=== PATIENT | female | born 1975 | race Caucasian/White ===

== ENCOUNTER 2017-09-21 04:48 | Emergency (ER) | payer SELFPAY ==
[~2017-09-21] VITALS: Ht 162.6 cm; Wt 84.5 kg
[2017-09-21 05:23] LABS: HEMATOCRIT 37.8 % (36.0-46.0); HEMOGLOBIN 12.8 G/DL (11.9-15.5); MCHC 33.9 G/DL (30.0-36.0); MCV 94.5 FL (83-99); PLATELET COUNT 190 K/uL (156-360); RBC DIS.WIDTH-SD 42.2 % (39-53); WHITE BLOOD COUNT 4.5 K/uL (4.1-10.2)
[2017-09-21 05:36] LABS: APPEARANCE SL.HAZY ((CLEAR)); BILIRUBIN NEGATIVE; BLOOD LARGE; COLOR YELLOW ((YELLOW)); GLUCOSE (STRIP) NEGATIVE; KETONES NEGATIVE; LEUKOCYTES NEGATIVE; NITRITE NEGATIVE; PROTEIN (STRIP) 30; SPECIFIC GRAVITY 1.017 (1.000-1.030); UROBILINOGEN 0.2 MG/DL (0.2-1.0)
[2017-09-21 06:17] LABS: RED BLOOD CELLS TNTC /HPF (0-5); WHITE BLOOD CELLS 0-5 /HPF (0-5)
[2017-09-21 06:18] LABS: BACTERIA 1+ /HPF; EPITHELIAL CELLS 1+ /HPF; MUCUS 3+ /LPF; UCUL ADDED? YES
[2017-09-21 08:18] VITALS: BP 121/71
[2017-09-22] MEDS ORDERED: PERCOCET 5/31 TABLET PO (15:52)
[2017-09-22] MEDS ORDERED: ZOFRAN4 MG PO (15:52)
[2017-09-22] MEDS ORDERED: IMODIUM A-D2 M2 PO (15:52)
== END 2017-09-21 08:18 | disposition home or self-care (01) ==
LOC: EME 04:48
DX: O20.0 Threatened abortion (principal); O09.521 Supervision of elderly multigravida, first trimester; Z3A.01 Less than 8 weeks gestation of pregnancy
CPT/HCPCS: 76801; 81003; 84702; 85027; 86900; 86901; 87086; 99281; 99284

== ENCOUNTER 2017-09-22 12:46 | Emergency (ER) | payer SELFPAY ==
[~2017-09-22] VITALS: Ht 162.6 cm; Wt 83.0 kg
[2017-09-22 13:56] LABS: BASOPHIL (%) 0.2 % (0-1); EOSINOPHIL (%) 0.2 % (0-5); HEMATOCRIT 35.3 % (36.0-46.0); IMMATURE GRANULOCYTE (%) 0.2 % (0.0-0.7); LYMPHOCYTE (%) 12.2 % (15-42); LYMPHOCYTE COUNT 0.7 K/uL (1.0-2.8); MCH 32.2 PG (29.0-34.0); MCV 94.6 FL (83-99); MONOCYTE (%) 5.2 % (3-12); MONOCYTE COUNT 0.3 K/uL (0-0.8); NEUTROPHIL COUNT 4.4 K/uL (1.8-6.4); PLATELET COUNT 186 K/uL (156-360); RBC DIS.WIDTH-CV 12.1 % (11.8-14.6); RBC DIS.WIDTH-SD 42.1 % (39-53); RED BLOOD COUNT 3.73 M/uL (3.80-5.20); WHITE BLOOD COUNT 5.4 K/uL (4.1-10.2)
[2017-09-22 14:03] LABS: CHLORIDE 105 mEq/L (99-109); POTASSIUM 3.8 mEq/L (3.7-5.4); SODIUM 138 mEq/L (136-147)
[2017-09-22 14:05] LABS: GLUCOSE 109 mg/dL (70-99)
[2017-09-22 14:09] LABS: CREATININE 0.9 mg/dL (0.6-1.3); GFR ESTIMATE (CALCULATED) > 59 mL/min/
[2017-09-22 14:10] LABS: UREA NITROGEN (BUN) 12 mg/dL (9-23)
[2017-09-22 14:17] LABS: QUANTITATIVE HCG 1382.4 MIU/ML
[2017-09-22] MEDS ORDERED: PERCOCET 5/31 TABLET PO (15:52)
[2017-09-22] MEDS ORDERED: IMODIUM A-D2 M2 PO (15:52)
[2017-09-22] MEDS ORDERED: ZOFRAN4 MG PO (15:52)
[2017-09-22 16:42] VITALS: BP 113/61
== END 2017-09-22 16:43 | disposition home or self-care (01) ==
LOC: EME 12:46
PROVIDERS: Emergency Medicine
DX: O03.9 Complete or unspecified spontaneous abortion without complication (principal); K52.9 Noninfective gastroenteritis and colitis, unspecified; Z88.0 Allergy status to penicillin
CPT/HCPCS: 76801; 80048; 84702; 85025 91; 99281; 99285; J2270; J2405; J7030

== ENCOUNTER → 2017-10-22 | Outpatient (CLI) | payer SELFPAY ==
[~2017-10-22] MED LIST: IMODIUM A-D2 M2 PO; PERCOCET 5/31 TABLET PO; ZOFRAN4 MG PO
== END | disposition home or self-care (01) ==
LOC: RAD 12:17
DX: R93.41 Abnormal radiologic findings on diagnostic imaging of renal pelvis, ureter, or bladder (principal)
CPT/HCPCS: 76856

== ENCOUNTER 2017-12-10 21:44 | Inpatient (IN) | payer SELFPAY ==
[~2017-12-10] VITALS: Ht 162.6 cm; Wt 83.9 kg
[~2017-12-10 21:44] MED LIST changes: +IRON325 M1 PO; +LORATADINE10 M2 PO
[2017-12-11 06:06] VITALS: BP 116/64
[2017-12-11 06:48] VITALS: BP 116/64
[2017-12-11 12:13] VITALS: BP 95/55
[2017-12-11 16:10] VITALS: BP 110/60
[2017-12-11 19:40] VITALS: BP 118/67
[2017-12-12 00:16] VITALS: BP 112/64
[2017-12-12 03:19] VITALS: BP 113/68
[2017-12-12 06:23] LABS: BASOPHIL (%) 0.1 % (0-1); EOSINOPHIL (%) 0.1 % (0-5); HEMATOCRIT 31.2 % (36.0-46.0); HEMOGLOBIN 10.5 G/DL (11.9-15.5); IMMATURE GRANULOCYTE (%) 0.3 % (0.0-0.7); LYMPHOCYTE COUNT 1.1 K/uL (1.0-2.8); MCH 31.3 PG (29.0-34.0); MCHC 33.7 G/DL (30.0-36.0); MCV 93.1 FL (83-99); MONOCYTE (%) 9.5 % (3-12); MONOCYTE COUNT 0.7 K/uL (0-0.8); NEUTROPHIL COUNT 5.5 K/uL (1.8-6.4); PLATELET COUNT 168 K/uL (156-360); RBC DIS.WIDTH-CV 12.5 % (11.8-14.6); RED BLOOD COUNT 3.35 M/uL (3.80-5.20); WHITE BLOOD COUNT 7.4 K/uL (4.1-10.2)
[2017-12-12 08:10] VITALS: BP 109/61
[2017-12-12 15:47] VITALS: BP 103/58
[2017-12-12 19:44] VITALS: BP 105/60
[2017-12-13 00:17] VITALS: BP 110/57
[2017-12-13 03:41] VITALS: BP 107/58
[2017-12-13] MEDS ORDERED: MOTRIN600 MG PO (05:18)
[2017-12-13] MEDS ORDERED: ENDOCET 5-3251 EACH PO (05:18)
== END 2017-12-13 09:00 | disposition home or self-care (01) | DRG 743 ==
LOC: ENRESERV 21:44 → 2SOUTH 12-11 05:26 → ENRESERV 12-11 10:48 → 2EASTP 12-11 10:57 → 2SOUTH 12-11 11:10 → 2EASTP 12-13 09:00
PROVIDERS: Obstetrics & Gynecology
DX: N93.9 Abnormal uterine and vaginal bleeding, unspecified (principal); D64.9 Anemia, unspecified; R50.82 Postprocedural fever; N85.2 Hypertrophy of uterus
CPT/HCPCS: 84702; 85025; 86850; 86900; 86901; 87086; 88307; J0131; J1100; J1580; J1885; J2250; J2405; J2710; J2765; J3010; J7050; J7120; J7643